=== PATIENT | female | born 1985 | race Caucasian/White ===

== ENCOUNTER 2016-06-30 15:17 | Inpatient (IN) | payer OTHER ==
[~2016-06-30] VITALS: Ht 160 cm; Wt 55.4 kg
[~2016-06-30 15:17] MED LIST: CLIN-73 PO
[2016-06-30 19:57] VITALS: BP 82/46; RESP 16
[2016-06-30 20:21] VITALS: Ht 160 cm; Wt 55.4 kg
[2016-06-30] MEDS ORDERED: ACETAMINOPHEN 325 MG TAB PO PRN (21:00)
[2016-06-30] MEDS ORDERED: VANCOMYCIN IV PER PHARMACY XX SCH (21:00)
[2016-06-30] MEDS: VANCOMYCIN 1 GM (PMX) 250 ML IVPB SCH (22:30)
[2016-07-01 00:48] VITALS: BP 96/55; PULSE 88; RESP 18
[2016-07-01 00:49] LABS: ADD UMIC YES; URINE BILIRUBIN (Dip) NEGATIVE (NEGATIVE); URINE BLOOD (Dip) 3+ (NEGATIVE); URINE COLOR RED (YELLOW); URINE GLUCOSE (Dip) NEGATIVE (NEGATIVE); URINE KETONES (Dip) NEGATIVE (NEGATIVE); URINE LEUKOCYTE ESTERASE (Dip) NEGATIVE (NEGATIVE); URINE NITRITE (Dip) NEGATIVE (NEGATIVE); URINE TOTAL PROTEIN (Dip) 2+ (NEGATIVE); URINE UROBILINOGEN (Dip) 1.0 E.U./dL (0.1-1.0)
[2016-07-01 00:52] LABS: BACTERIA,URINE FEW; SQUAMOUS EPITHELIAL CELL,UR FEW; URINE RBCS >200 /HPF (0)
[2016-07-01] MEDS: IMIPENEM/CILASTATIN 1,000 MG in SOD CHLORIDE 0.9% 250 ML IVPB SCH ×4 (00:57→17:24)
[2016-07-01 01:16] LABS: ALBUMIN 2.5 g/dl (3.3-4.9); BASOPHILS % 0.6 % (0.0-2.0); EOSINOPHILS # 0.2 10^3/ul (0.0-0.5); EOSINOPHILS % 4.2 % (0.0-7.0); HEMATOCRIT 29.8 % (37.0-47.0); HEMOGLOBIN 9.9 g/dl (12.0-16.0); LYMPHOCYTES # 1.3 10^3/ul (0.8-2.9); LYMPHOCYTES % 26.8 % (15.0-51.0); MEAN CORPUSCULAR HEMOGLOBIN 27.6 pg (29.0-33.0); MEAN CORPUSCULAR HGB CONC 33.1 g/dl (32.0-37.0); MEAN CORPUSCULAR VOLUME 83.3 fl (82.0-101.0); MEAN PLATELET VOLUME 7.1 fl (7.4-10.4); MONOCYTE # 0.5 10^3/ul (0.3-0.9); MONOCYTES % 9.6 % (0.0-11.0); NEUTROPHIL # 2.9 10^3/ul (1.6-7.5); NEUTROPHILS % 58.8 % (39.0-77.0); PLATELET COUNT 378 10^3/UL (140-440); POTASSIUM 3.7 mmol/L (3.5-5.1); RED BLOOD COUNT 3.57 10^6/ul (4.20-5.40); RED CELL DISTRIBUTION WIDTH 14.3 % (11.5-14.5); UNCORRECTED WBC 4.9 10^3/ul (4.8-10.8); WHITE BLOOD COUNT 4.9 10^3/ul (4.8-10.8)
[2016-07-01 01:17] LABS: CONDITION 1
[2016-07-01 01:18] LABS: CREATININE 0.65 mg/dl (0.44-1.00)
[2016-07-01 01:19] LABS: ALBUMIN/GLOBULIN RATIO 0.73; CALCIUM 8.3 mg/dl (8.4-10.2); MAGNESIUM 1.8 mg/dl (1.7-2.5); PHOSPHORUS 3.4 mg/dl (2.5-4.9); TOTAL PROTEIN 5.9 g/dl (6.1-8.1)
[2016-07-01] MEDS: METHADONE 10 MG TAB PO SCH ×3 (01:41→17:24)
[2016-07-01 07:41] VITALS: BP 91/51; RESP 19
[2016-07-01] MEDS: VANCOMYCIN 1 GM (PMX) 250 ML IVPB SCH ×2 (09:26→22:20)
[2016-07-01] MEDS: ENOXAPARIN 40 MG/0.4 ML SYG SC SCH (09:32)
--- NOTE | 2016-07-01 11:49 | PN ---
Date/Time of Note Date/Time of Note DATE: 07/01/16 TIME: 11:46 Assessment/Plan VTE Prophylaxis VTE Prophylaxis Intervention: LMWH Lines/Catheters IV Catheter Type (from Nrs): Saline Lock Assessment/Plan Chief Complaint/Hosp Course S: Less pain. No further fever. No nausea diarrhea. No previous similar issues in the past. O: Vss PE No pallor adenopathy Regular, no appreciated murmur rub gallop Clear Benign Right ankle: Ulcer eschar erythema tenderness A/P 1. Rt ankle ulcer/abscess; stable consulted podiatry. Cont atb's/tetanus shot; xr +/- mri. 2. Substance abuse 3. Anemia Problems: Exam/Review of Systems Vital Signs Vitals Vital Signs Date Time Temp Pulse Resp B/P Pulse Ox O2 Delivery O2 Flow Rate FiO2 07/01/16 07:41 97.7 69 19 91/51 98 Intake and Output 06/30/16 06/30/16 07/01/16 15:00 23:00 07:00 Intake Total 620 ml Output Total 800 ml Balance -180 ml Results Result Diagram: 07/01/16 0040 07/01/16 0040 Results 24 hrs Laboratory Tests Test 06/30/16 23:40 07/01/16 00:40 Urine Bacteria FEW Urine Bilirubin NEGATIVE Urine Clarity BLOODY Urine Color RED Urine Glucose NEGATIVE Urine Hemoglobin 3+ H Urine Ketones NEGATIVE Urine Leukocyte Esterase NEGATIVE Urine Microscopic RBC >200 Urine Microscopic WBC 0-2 Urine Nitrite NEGATIVE Urine Specific [place] 1.025 Urine Squamous Epithelial Cells FEW Urine Total Protein 2+ H Urine Urobilinogen 1.0 E.U./dL Urine pH 7.0 Alanine Aminotransferase (ALT/SGPT) 32 Albumin 2.5 L Albumin/Globulin Ratio 0.73 Alkaline Phosphatase 86 Anion Gap 12 Aspartate Amino Transf (AST/SGOT) 26 Basophils # 0.0 Basophils % 0.6 Blood Morphology Comment Blood Urea Nitrogen 6 L Calcium Level 8.3 L Carbon Dioxide Level 27 Chloride Level 104 Creatinine 0.65 Direct Bilirubin 0.00 Eosinophils # 0.2 Eosinophils % 4.2 Globulin 3.40 H Glucose Level 104 Hematocrit 29.8 L Hemoglobin 9.9 L Indirect Bilirubin 0.0 Lymphocytes # 1.3 Lymphocytes % 26.8 Magnesium Level 1.8 Mean Corpuscular Hemoglobin 27.6 L Mean Corpuscular Hemoglobin Concent 33.1 Mean Corpuscular Volume 83.3 Mean Platelet Volume 7.1 L Monocytes # 0.5 Monocytes % 9.6 Neutrophils # 2.9 Neutrophils % 58.8 Nucleated Red Blood Cells # 0.0 Nucleated Red Blood Cells % 0.0 Phosphorus Level 3.4 Platelet Count 378 Potassium Level 3.7 Red Blood Count 3.57 L Red Cell Distribution Width 14.3 Sodium Level 139 Total Bilirubin 0.0 L Total Protein 5.9 L White Blood Count 4.9 Medications Medications Current Medications Imipenem/ Cilastatin Sodium/ Sodium Chloride (Primaxin/NS) 250 ml @ 166.667 mls /hr Q6 IVPB Last administered on 07/01/16 06:08; Admin Dose 166.667 MLS/HR; Start 07/01/16 at 00:00 Morphine Sulfate (morphine) 4 mg Q4H PRN IV pain; Start 06/30/16 at 21:00 Acetaminophen (Tylenol Tab) 650 mg Q6H PRN PO PAIN AND OR ELEVATED TEMP; Start 06/30/16 at 21:00 Enoxaparin Sodium 40 mg 40 mg DAILY SC Last administered on 07/01/16 09:32; Admin Dose 40 MG; Start 07/01/16 at 09:00 Vancomycin HCl (Vancocin) 250 ml @ 125 mls/hr Q12H IVPB Last administered on 09:26; Admin Dose 125 MLS/HR; Start 06/30/16 at 22:00 Methadone HCl (Methadone) 20 mg Q8H PO Last administered on 07/01/16 09:26; Admin Dose 20 MG; Start 07/01/16 at 01:00 HEATHER GONSALVES MD Jul 01, 2016 11:49
[2016-07-01] MEDS ORDERED: HYDROCODONE/APAP (10/325) TAB PO PRN (12:00)
[2016-07-01] MEDS ORDERED: DOCUSATE SODIUM 100 MG CAP PO PRN (12:00)
[2016-07-01] MEDS ORDERED: ONDANSETRON 4 MG INJ IV PRN (12:00)
[2016-07-01] MEDS ORDERED: NACL 0.9% 3 ML SYG IV SCH (12:00)
[2016-07-01] MEDS: SOD CHLORIDE 0.9% 1,000 ML IV SCH ×2 (12:48→20:00)
--- NOTE | 2016-07-01 12:49 | CONS ---
Date/Time of Note Date/Time of Note DATE: 07/01/16 TIME: 12:48 Consultation Date/Type/Reason Admit Date/Time Jun 30, 2016 at 19:37 Social History Smoking Status: Current every day smoker Exam/Review of Systems Vital Signs Vitals Vital Signs Date Time Temp Pulse Resp B/P Pulse Ox O2 Delivery O2 Flow Rate FiO2 07/01/16 07:41 97.7 69 19 91/51 98 Intake and Output 06/30/16 06/30/16 07/01/16 15:00 23:00 07:00 Intake Total 620 ml Output Total 800 ml Balance -180 ml Results Result Diagram: 07/01/16 0040 07/01/16 0040 Results 24 hrs Laboratory Tests Test 06/30/16 23:40 07/01/16 00:40 Urine Bacteria FEW Urine Bilirubin NEGATIVE Urine Clarity BLOODY Urine Color RED Urine Glucose NEGATIVE Urine Hemoglobin 3+ H Urine Ketones NEGATIVE Urine Leukocyte Esterase NEGATIVE Urine Microscopic RBC >200 Urine Microscopic WBC 0-2 Urine Nitrite NEGATIVE Urine Specific [place] 1.025 Urine Squamous Epithelial Cells FEW Urine Total Protein 2+ H Urine Urobilinogen 1.0 E.U./dL Urine pH 7.0 Alanine Aminotransferase (ALT/SGPT) 32 Albumin 2.5 L Albumin/Globulin Ratio 0.73 Alkaline Phosphatase 86 Anion Gap 12 Aspartate Amino Transf (AST/SGOT) 26 Basophils # 0.0 Basophils % 0.6 Blood Morphology Comment Blood Urea Nitrogen 6 L Calcium Level 8.3 L Carbon Dioxide Level 27 Chloride Level 104 Creatinine 0.65 Direct Bilirubin 0.00 Eosinophils # 0.2 Eosinophils % 4.2 Globulin 3.40 H Glucose Level 104 Hematocrit 29.8 L Hemoglobin 9.9 L Indirect Bilirubin 0.0 Lymphocytes # 1.3 Lymphocytes % 26.8 Magnesium Level 1.8 Mean Corpuscular Hemoglobin 27.6 L Mean Corpuscular Hemoglobin Concent 33.1 Mean Corpuscular Volume 83.3 Mean Platelet Volume 7.1 L Monocytes # 0.5 Monocytes % 9.6 Neutrophils # 2.9 Neutrophils % 58.8 Nucleated Red Blood Cells # 0.0 Nucleated Red Blood Cells % 0.0 Phosphorus Level 3.4 Platelet Count 378 Potassium Level 3.7 Red Blood Count 3.57 L Red Cell Distribution Width 14.3 Serum HCG, Qualitative NEGATIVE Sodium Level 139 Total Bilirubin 0.0 L Total Protein 5.9 L White Blood Count 4.9 Medications Medications Current Medications Imipenem/ Cilastatin Sodium/ Sodium Chloride (Primaxin/NS) 250 ml @ 166.667 mls /hr Q6 IVPB Last administered on 07/01/16 06:08; Admin Dose 166.667 MLS/HR; Start 07/01/16 at 00:00 Morphine Sulfate (morphine) 4 mg Q4H PRN IV pain; Start 06/30/16 at 21:00 Acetaminophen (Tylenol Tab) 650 mg Q6H PRN PO PAIN AND OR ELEVATED TEMP; Start 06/30/16 at 21:00 Enoxaparin Sodium 40 mg 40 mg DAILY SC Last administered on 07/01/16 09:32; Admin Dose 40 MG; Start 07/01/16 at 09:00 Vancomycin HCl (Vancocin) 250 ml @ 125 mls/hr Q12H IVPB Last administered on 09:26; Admin Dose 125 MLS/HR; Start 06/30/16 at 22:00 Methadone HCl 20 mg 20 mg Q8H PO Last administered on 07/01/16 09:26; Admin Dose 20 MG; Start 07/01/16 at 01:00 Sodium Chloride (NS) 1,000 ml @ 125 mls/hr Q8H IV ; Start 07/01/16 at 12:00 Ondansetron HCl (Zofran Inj) 4 mg Q6H PRN IV NAUSEA AND/OR VOMITING; Start at 12:00 Docusate Sodium (Colace) 100 mg Q12H PRN PO CONSTIPATION; Start 07/01/16 at 12: 00 Acetaminophen/ Hydrocodone Bitart ([place] (10/325)) 1 tab Q4H PRN PO PAIN; Start 07/01/16 at 12:00 JAZMIN TIWARI DPM Jul 01, 2016 12:48
--- NOTE | 2016-07-01 14:31 | RADRPT ---
PROCEDURE: XR right ankle. CLINICAL INDICATION: Ankle pain TECHNIQUE: AP and lateral views are available for review. COMPARISON: None available FINDINGS: There is soft tissue swelling lateral to the lateral malleolus. There is normal mineralization, architecture and alignment. No fracture or osseous lesion is identif ied. The joints are unremarkable. IMPRESSION: Soft tissue swelling lateral to the lateral malleolus. No fracture identified. RPTAT: HGDB .Tima Cook MD, MD Date Time Electronically viewed and signed by .Tima Cook MD, on 07/01/2016 14:30 .B/
--- NOTE | 2016-07-01 15:54 | HP ---
Date/Time of Note Date/Time of Note DATE: 07/01/16 TIME: 15:46 Assessment/Plan VTE Prophylaxis VTE Prophylaxis Intervention: heparin Lines/Catheters IV C[facility] Type [facility]from [facility] Peripheral IV Urinary Cath still in place: No Assessment/Plan Assessment/Plan 1. Right leg infected Ulcer: s/p IVDU - broad spectrum abx - wound cx - ID consult 2. Active IV Drug use - start methadone - monitor for withdrawal HPI/ROS Admit Date/Time Admit Date/Time Jun 30, 2016 at 19:37 Hx of Present Illness This is a 30 yo female with hx of IVDU who initially presented to OSH with right leg wound. She said she was injecting around her right ankle area and starting about a week a ago, she started noticing redness and swelling, which has since worsened and became dark with draining serosangenous fluid. Reported fever and also said "I think I'm feeling like withdrawing". No chest pain or SOB. She was transferred here for insurance reasons. . PMH/Family/Social Social History Smoking Status: Current every day smoker Exam/Review of Systems Vital Signs Vitals Vital Signs Date Time Temp Pulse Resp B/P Pulse Ox O2 Delivery O2 Flow Rate FiO2 07/01/16 07:41 97.7 69 19 91/51 98 Intake and Output 06/30/16 06/30/16 07/01/16 15:00 23:00 07:00 Intake Total 620 ml Output Total 800 ml Balance -180 ml Exam Constitutional: other (sleepy, but arousable) Head: atraumatic, normocephalic Eyes: EOMI, PERRL Neck: non-tender, supple Respiratory: clear to auscultation, normal air movement Cardiovascular: nl pulses, regular rate and rhythm Gastrointestinal: non-tender, soft Extremities: other (there is wound in the lateral aspect of right ankle. Overlying skin is dark and there is serosanginous fluid draining. right foot is swollen, erythematous and tender) Labs Result Diagram: 07/01/16 0040 07/01/16 0040 Medications Medications Current Medications Imipenem/ Cilastatin Sodium/ Sodium Chloride (Primaxin/NS) 250 ml @ 166.667 mls /hr Q6 IVPB Last administered on 07/01/16t 12:48; Admin Dose 166.667 MLS/HR; Start 07/01/16 at 00:00 Morphine Sulfate (morphine) 4 mg Q4H PRN IV pain; Start 06/30/16 at 21:00 Acetaminophen (Tylenol Tab) 650 mg Q6H PRN PO PAIN AND OR ELEVATED TEMP; Start 06/30/16 at 21:00 Enoxaparin Sodium 40 mg 40 mg DAILY SC Last administered on 07/01/16 09:32; Admin Dose 40 MG; Start 07/01/16 at 09:00 Vancomycin HCl (Vancocin) 250 ml @ 125 mls/hr Q12H IVPB Last administered on 09:26; Admin Dose 125 MLS/HR; Start 06/30/16 at 22:00 Methadone HCl 20 mg 20 mg Q8H PO Last administered on 07/01/16 09:26; Admin Dose 20 MG; Start 07/01/16 at 01:00 Sodium Chloride (NS) 1,000 ml @ 125 mls/hr Q8H IV Last administered on 12:48; Admin Dose 125 MLS/HR; Start 07/01/16 at 12:00 Ondansetron HCl (Zofran Inj) 4 mg Q6H PRN IV NAUSEA AND/OR VOMITING; Start at 12:00 Docusate Sodium (Colace) 100 mg Q12H PRN PO CONSTIPATION; Start 07/01/16 at 12: 00 Acetaminophen/ Hydrocodone Bitart ([place] (10/325)) 1 tab Q4H PRN PO PAIN; Start 07/01/16 at 12:00 Miscellaneous Information (*Rx Drug Level Order Reminder*) 1 ONCE ONCE XX ; Start 07/01/16 at 21:00; Stop 07/01/16 at 21:01 ANTHONY DEL CASTILLO MD Jul 01, 2016 15:54
[2016-07-01 19:57] VITALS: BP 105/64; RESP 16
[2016-07-02] VITALS (9 sets, daily range): BP systolic 99–123; BP diastolic 58–90; PULSE 66–68; RESP 14–19
[2016-07-02 00:28] LABS: BARBITURATES NEGATIVE (NEGATIVE); BENZODIAZEPINES NEGATIVE (NEGATIVE); CANNABINOIDS NEGATIVE (NEGATIVE); COCAINE NEGATIVE (NEGATIVE); OPIATES POSITIVE (NEGATIVE)
[2016-07-02] MEDS: METHADONE 10 MG TAB PO SCH ×3 (01:22→17:06)
--- NOTE | 2016-07-02 02:24 | RADRPT ---
PROCEDURE: MR Ankle. CLINICAL INDICATION: Right ankle abscess. Pain and swelling in the right ankle radiating into the foot and metatarsals. TECHNIQUE: Noncontrast MRI of the right ankle, with axial, sagittal and coronal reformatted images. T1-weighted, T2-weighted, proton density and STIR sequences were employed. COMPARISON: No prior studies are available for comparison. FINDINGS: The osseous structures are normal. There are no fractures or dislocations. The talar dome is intac t. The subtalar facets are normal and there are no coalitions. The anterior calcaneal and lateral talar processes are normal. The sinus tarsus and tarsal tunnel are unremarkable. All tendinous structures are unremarkable including the Achilles tendon, plantar aponeurosis, registered medical assistant ior tibialis tendon and peroneal tendons. Suspected low grade injury at the anterior tibiofibular ligament. The anterior talofibular ligament, the syndesmotic ligament and deltoid ligament complexes are normal. Soft tissue defect over the anterior lateral aspect of the right ankle, without definite underlying abscess. IV contrast enhanced MRI examination of the right ankle may be of further use. Soft tissue swelling over the ankle and dorsum of the foot. IMPRESSION: 1. Soft tissue swelling over the right ankle and the dorsum of the foot. 2. Soft tissue defect over the antral lateral right ankle, without definite underlying abscess. 3. Otherwise, no acute process in the right ankle. Physician Charbel Date Time Electronically viewed and signed by Physician Charbel on 07/02/2016 02:23 RS/
[2016-07-02] MEDS: IMIPENEM/CILASTATIN 1,000 MG in SOD CHLORIDE 0.9% 250 ML IVPB SCH ×6 (02:32→17:06)
--- NOTE | 2016-07-02 02:38 | RADRPT ---
PROCEDURE: MR Foot. CLINICAL INDICATION: Soft tissue defect over the ankle with suspected abscess. TECHNIQUE: Noncontrast MRI of the right forefoot, with axial, sagittal and coronal images. COMPARISON: No prior studies are available for comparison. FINDINGS: There are no fractures or dislocations. There are no stress fractures. The osseous structures are normal. They demonstrate normal bone marrow signal. The sesamoids are normal. They are not diverg ent. No osteoarthritic changes are noted. All articular surfaces are unremarkable. The visualized portions of the midfoot are normal. The Lisfranc ligament is normal. The remaining visualized ligamentous structures are unremarkable. All visualized flexor and extensor mechanism tendons are normal. There is no muscular atrophy. There are no abnormal fluid collections. Soft tissue defect of the anterior lateral right ankle, wit hout definite abscess. Soft tissue swelling and edema over the ankle and dorsum of the foot. IMPRESSION: 1. Soft tissue defect at the right ankle, with soft tissue swelling over the right foot. 2. No evident abscess. RPTAT: [facility] Physician Charbel Date Time Electronically viewed and signed by Physician Charbel on 07/02/2016 02:38 RS/
[2016-07-02] MEDS: SOD CHLORIDE 0.9% 1,000 ML IV SCH ×3 (04:00→20:47)
[2016-07-02] MEDS: VANCOMYCIN 1 GM (PMX) 250 ML IVPB SCH ×3 (05:33→22:54)
[2016-07-02 06:52] LABS: HAAIG REFLEX REFLEX FILED
[2016-07-02 07:08] LABS: BASOPHILS % 0.5 % (0.0-2.0); EOSINOPHILS # 0.1 10^3/ul (0.0-0.5); HEMATOCRIT 30.5 % (37.0-47.0); HEMOGLOBIN 10.2 g/dl (12.0-16.0); LYMPHOCYTES % 27.2 % (15.0-51.0); MEAN CORPUSCULAR HEMOGLOBIN 27.8 pg (29.0-33.0); MEAN CORPUSCULAR HGB CONC 33.4 g/dl (32.0-37.0); MEAN CORPUSCULAR VOLUME 83.2 fl (82.0-101.0); MEAN PLATELET VOLUME 7.1 fl (7.4-10.4); MONOCYTE # 0.4 10^3/ul (0.3-0.9); MONOCYTES % 9.9 % (0.0-11.0); NEUTROPHIL # 2.3 10^3/ul (1.6-7.5); NEUTROPHILS % 60.4 % (39.0-77.0); PLATELET COUNT 377 10^3/UL (140-440); RED BLOOD COUNT 3.67 10^6/ul (4.20-5.40); RED CELL DISTRIBUTION WIDTH 14.5 % (11.5-14.5); UNCORRECTED WBC 3.8 10^3/ul (4.8-10.8); WHITE BLOOD COUNT 3.8 10^3/ul (4.8-10.8)
[2016-07-02 07:16] LABS: CONDITION 1
[2016-07-02 07:23] LABS: ALBUMIN 2.9 g/dl (3.3-4.9); POTASSIUM 4.2 mmol/L (3.5-5.1)
[2016-07-02 07:25] LABS: CREATININE 0.62 mg/dl (0.44-1.00)
[2016-07-02 07:26] LABS: ALBUMIN/GLOBULIN RATIO 0.74; PHOSPHORUS 3.9 mg/dl (2.5-4.9); TOTAL PROTEIN 6.8 g/dl (6.1-8.1)
[2016-07-02 07:27] LABS: CALCIUM 8.8 mg/dl (8.4-10.2); MAGNESIUM 1.8 mg/dl (1.7-2.5)
[2016-07-02 07:48] LABS: THYROID STIMULATING HORMONE 3.65 MIU/L (0.465-4.680)
[2016-07-02 08:38] LABS: HEPATITIS B CORE ANTIBODY NEGATIVE (NEGATIVE)
[2016-07-02] MEDS: ENOXAPARIN 40 MG/0.4 ML SYG SC SCH (10:04)
--- NOTE | 2016-07-02 13:43 | PN ---
Date/Time of Note Date/Time of Note DATE: 07/02/16 TIME: 13:38 Assessment/Plan VTE Prophylaxis VTE Prophylaxis Intervention: contraindicated (Bleeding risk) Lines/Catheters IV Catheter Type (from Nrs): Peripheral IV Urinary Cath still in place: No Assessment/Plan Chief Complaint/Hosp Course S: 07/01 less pain. No further fever. No nausea diarrhea. No previous similar issues in the past. 07/02 stable. No toxicity. O: Vss PE No pallor Reg; no appreciated m/r/g Clear Benign Rt ankle: Ulcer/ eschar erythema-less; mild tenderness A/P 1. Rt ankle ulcer/abscess; stable, for i&d. 2. Substance abuse-methadone/amphetamine/tobacco? 3. Anemia 4. Hepatitis C?? -Confirmatory testing to be sent 5. Leukopenia Problems: Exam/Review of Systems Vital Signs Vitals Vital Signs Date Time Temp Pulse Resp B/P Pulse Ox O2 Delivery O2 Flow Rate FiO2 07/02/16 07:38 97.8 77 19 99/63 97 Intake and Output 07/01/16 07/01/16 07/02/16 15:00 23:00 07:00 Intake Total 2300 ml 1525 ml Output Total 1000 ml 1800 ml Balance 1300 ml -275 ml Results Result Diagram: 07/02/16 0510 07/02/16 0510 Results 24 hrs Laboratory Tests Test 07/01/16 20:55 07/01/16 22:30 07/02/16 05:10 Vancomycin Level Trough 7.0 L Urine Amphetamines Screen POSITIVE Urine Barbiturates NEGATIVE Urine Benzodiazepines Screen NEGATIVE Urine Cannabinoids NEGATIVE Urine Cocaine Screen NEGATIVE Urine Opiates Screen POSITIVE Alanine Aminotransferase (ALT/SGPT) 32 Albumin 2.9 L Albumin/Globulin Ratio 0.74 Alkaline Phosphatase 82 Anion Gap 13 Aspartate Amino Transf (AST/SGOT) 38 Basophils # 0.0 Basophils % 0.5 Blood Morphology Comment Blood Urea Nitrogen 4 L Calcium Level 8.8 Carbon Dioxide Level 30 Chloride Level 100 Creatinine 0.62 Direct Bilirubin 0.00 Eosinophils # 0.1 Eosinophils % 2.0 Globulin 3.90 H Glucose Level 76 HIV (1&2) Antibody NEGATIVE Hematocrit 30.5 L Hemoglobin 10.2 L Hemoglobin A1c 5.6 Hepatitis B Core Total Antibody NEGATIVE Hepatitis B Surface Antigen NEGATIVE Hepatitis C Antibody REACTIVE H Indirect Bilirubin 0.0 Lymphocytes # 1.0 Lymphocytes % 27.2 Magnesium Level 1.8 Mean Corpuscular Hemoglobin 27.8 L Mean Corpuscular Hemoglobin Concent 33.4 Mean Corpuscular Volume 83.2 Mean Platelet Volume 7.1 L Monocytes # 0.4 Monocytes % 9.9 Neutrophils # 2.3 Neutrophils % 60.4 Nucleated Red Blood Cells # 0.0 Nucleated Red Blood Cells % 0.0 Phosphorus Level 3.9 Platelet Count 377 Potassium Level 4.2 Red Blood Count 3.67 L Red Cell Distribution Width 14.5 Sodium Level 139 Thyroid Stimulating Hormone (TSH) 3.650 Total Bilirubin 0.0 L Total Protein 6.8 White Blood Count 3.8 #L Medications Medications Current Medications Imipenem/ Cilastatin Sodium/ Sodium Chloride (Primaxin/NS) 250 ml @ 166.667 mls /hr Q6 IVPB Last administered on 07/02/16 12:32; Admin Dose 166.667 MLS/HR; Start 07/01/16 at 00:00 Morphine Sulfate (morphine) 4 mg Q4H PRN IV pain; Start 06/30/16 at 21:00 Acetaminophen (Tylenol Tab) 650 mg Q6H PRN PO PAIN AND OR ELEVATED TEMP; Start 06/30/16 at 21:00 Enoxaparin Sodium (Lovenox) 40 mg DAILY SC Last administered on 07/02/16 10:04 ; Admin Dose 40 MG; Start 07/01/16 at 09:00 Methadone HCl 20 mg 20 mg Q8H PO Last administered on 07/02/16 09:59; Admin Dose 20 MG; Start 07/01/16 at 01:00 Sodium Chloride (NS) 1,000 ml @ 125 mls/hr Q8H IV Last administered on 12:48; Admin Dose 125 MLS/HR; Start 07/01/16 at 12:00 Ondansetron HCl (Zofran Inj) 4 mg Q6H PRN IV NAUSEA AND/OR VOMITING; Start at 12:00 Docusate Sodium (Colace) 100 mg Q12H PRN PO CONSTIPATION; Start 07/01/16 at 12: 00 Acetaminophen/ Hydrocodone Bitart 1 tab 1 tab Q4H PRN PO PAIN; Start 07/01/16 at 12:00 Vancomycin HCl (Vancocin) 250 ml @ 125 mls/hr Q8H IVPB Last administered on t 05:33; Admin Dose 125 MLS/HR; Start 07/01/16 at 22:00 HEATHER GONSALVES MD Jul 02, 2016 13:43
[2016-07-02] MEDS ORDERED: LIDOCAINE 2% (SDV) 5 ML INJ ONE (18:58)
[2016-07-02] MEDS ORDERED: PROPOFOL 20 ML ONE (18:58)
[2016-07-02] MEDS ORDERED: MEPERIDINE 100 MG INJ ONE (18:59)
[2016-07-02] MEDS ORDERED: ONDANSETRON 4 MG INJ IV PRN (19:00)
[2016-07-02] MEDS ORDERED: MEPERIDINE 25 MG INJ IV PRN (19:00)
[2016-07-02] MEDS ORDERED: DIPHENHYDRAMINE 50 MG INJ IV PRN (19:00)
[2016-07-02] MEDS ORDERED: METOCLOPRAMIDE 10 MG INJ IV PRN (19:00)
[2016-07-02] MEDS ORDERED: MIDAZOLAM 1 MG/ML 2 ML INJ IV PRN (19:00)
[2016-07-02] MEDS ORDERED: morphine (1 MG/ML) 10ML SYRINGE IV PRN ×2 (19:00)
[2016-07-02] MEDS ORDERED: FENTAnyl 50 MCG/ML VIAL IV PRN ×2 (19:00)
[2016-07-02] MEDS ORDERED: POLYMYXIN/BACITRACIN 1L IRRIG IRR ONE (19:38)
--- NOTE | 2016-07-02 19:48 | PN ---
Date/Time of Note Date/Time of Note DATE: 07/02/16 TIME: 19:42 Assessment/Plan Lines/Catheters IV Catheter Type (from Nrsg): Peripheral IV [place] in Place (from Nrsg): No Subjective 24 Hr Interval Summary Reports pain in the right ankle. Denies fever and chills. Reports no overnight adverse events. Reports feeling better with less swelling on the right ankle. Patient was seen at bedside. Constitutional: no complaints Pain Control: well controlled Exam/Review of Systems Vital Signs Vitals Vital Signs Date Time Temp Pulse Resp B/P Pulse Ox O2 Delivery O2 Flow Rate FiO2 07/02/16 07:38 97.8 77 19 99/63 97 Intake and Output 07/01/16 07/01/16 07/02/16 15:00 23:00 07:00 Intake Total 2300 ml 1525 ml Output Total 1000 ml 1800 ml Balance 1300 ml -275 ml Exam Free Text/Dictation Patient was seen and examined at bedside. Black eschar present anterior right ankle with pus draining. Decrease in edema noted with wrinkling sign. There is decrease in erythema. The area is tender to palpation. Dorsalis pedis and posterior tibial pulses weakly palpable. There is decrease in sensation noted on the right foot versus the left foot. No other changes noted on examination today. Imaging and labs reviewed. Results Result Diagram: 07/02/16 0510 07/02/16 0510 JAZMIN TIWARI DPM Jul 02, 2016 19:48
--- NOTE | 2016-07-02 19:52 | OPR ---
Date/Time of Note Date/Time of Note DATE: 07/02/16 TIME: 19:49 Operative Report Procedure Date: Jul 02, 2016 Preoperative Diagnosis Right ankle abscess Status post IVDA Infection from attempted use of IVDA on the right ankle Heroin abuse Postoperative Diagnosis Right ankle abscess Status post IVDA Infection from attempted use of IVDA on the right ankle Heroin abuse Surgeon: JAZMIN TIWARI DPM Anesthesia: general Estimated Blood Loss: minimal Specimens NONE Complications: None Pt Condition Post Procedure: stable Disposition: PACU Indications This is an unfortunate 30-year-old female patient who is addicted to heroin. She was admitted to the hospital because she injected her right ankle and cause a severe infection. I was consulted for evaluation and treatment. She was found to have an abscess of the right ankle with necrosis. I recommended surgical debridement. The risks and complications were discussed with patient in great detail including but not limited to worsening of her infection, failure of surgery to correct the problem, need for additional surgical procedures, deep venous thrombosis, limb loss and loss of life. Patient understands and accepts the risks and complications discussed. An informed consent was signed, obtained and placed in the chart. No guarantee or warranty was given or implied either verbal or written form as to the outcome of the procedure. Operative Findings Significant necrosis of right ankle with purulent drainage and necrotic soft tissue with exposed neurovascular structures and muscle. Procedure Description The patient was seen in the preoperative area. The proposed procedure was discussed and all questions were answered. Risks and complications were discussed. Informed consent was obtained signed and placed in the chart. The patient was then taken to the operating room. Patient was placed on the operating table in the supine position. All bony prominences were padded properly. A timeout was called and the correct site of surgery was identified by everyone in the operating room. The anesthesiologist placed the patient under general anesthesia. The right lower extremity was then scrubbed, prepped and draped in the usual aseptic manner. Attention was directed to the anterior right ankle with 6 x 6 cm necrotic black eschar was found. This was removed surgically using a #15 blade. There was significant necrosis of soft tissue underneath the black eschar. Using sharp instrumentation and care to protect vital neurovascular structures, necrotic soft tissue was debrided to bleeding tissue. The area was flushed with copious amounts of sterile normal saline with bacitracin. After extensive debridement to bleeding tissue, the wound was covered with hydrogel, Xeroform, sterile gauze and wrapped in Matias and Coban. Postoperative injection of 0.5% Marcaine plain was given. The patient tolerated procedure and anesthesia well. She was transferred to recovery room with vital signs stable and vascular status intact to the right lower extremity. Patient will be sent back to the floor after postoperative monitoring. Postoperative orders were written. Patient will be seen in house. Prognosis is guarded at this time. JAZMIN TIWARI DPM Jul 02, 2016 19:52
[2016-07-02] MEDS: morphine 4 MG/ML VIAL IV PRN (20:45)
[2016-07-02] MEDS: FLUCONAZOLE 100 MG TAB PO SCH (21:27)
[2016-07-02] MEDS ORDERED: IBUPROFEN 600 MG TAB PO PRN (21:30)
[2016-07-02] MEDS ORDERED: HYDROmorphONE 1 MG/ML SYG IV STA (21:34)
[2016-07-02] MEDS ORDERED: LORAZEPAM 2 MG INJ IV PRN (22:00)
[2016-07-03] MEDS: METHADONE 10 MG TAB PO SCH ×4 (01:00→18:20)
[2016-07-03] MEDS: IMIPENEM/CILASTATIN 1,000 MG in SOD CHLORIDE 0.9% 250 ML IVPB SCH ×6 (01:11→18:21)
[2016-07-03 04:00] VITALS: BP 100/71; RESP 16
[2016-07-03 05:49] LABS: BASOPHILS % 0.6 % (0.0-2.0); EOSINOPHILS # 0.1 10^3/ul (0.0-0.5); EOSINOPHILS % 4.3 % (0.0-7.0); HEMATOCRIT 31.4 % (37.0-47.0); HEMOGLOBIN 10.5 g/dl (12.0-16.0); LYMPHOCYTES # 1.4 10^3/ul (0.8-2.9); LYMPHOCYTES % 46.3 % (15.0-51.0); MEAN CORPUSCULAR HEMOGLOBIN 27.8 pg (29.0-33.0); MEAN CORPUSCULAR HGB CONC 33.6 g/dl (32.0-37.0); MEAN CORPUSCULAR VOLUME 82.9 fl (82.0-101.0); MEAN PLATELET VOLUME 6.8 fl (7.4-10.4); MONOCYTE # 0.3 10^3/ul (0.3-0.9); MONOCYTES % 10.5 % (0.0-11.0); NEUTROPHIL # 1.2 10^3/ul (1.6-7.5); NEUTROPHILS % 38.3 % (39.0-77.0); PLATELET COUNT 406 10^3/UL (140-440); RED BLOOD COUNT 3.78 10^6/ul (4.20-5.40); RED CELL DISTRIBUTION WIDTH 14.4 % (11.5-14.5); UNCORRECTED WBC 3.1 10^3/ul (4.8-10.8); WHITE BLOOD COUNT 3.1 10^3/ul (4.8-10.8)
[2016-07-03 06:05] LABS: POTASSIUM 3.8 mmol/L (3.5-5.1)
[2016-07-03 06:07] LABS: CREATININE 0.56 mg/dl (0.44-1.00)
[2016-07-03 06:08] LABS: CALCIUM 8.8 mg/dl (8.4-10.2); PHOSPHORUS 4.1 mg/dl (2.5-4.9)
[2016-07-03 06:11] LABS: CONDITION 1
[2016-07-03] MEDS: VANCOMYCIN 1 GM (PMX) 250 ML IVPB SCH (07:00)
[2016-07-03 07:57] VITALS: BP 93/63; RESP 18
[2016-07-03] MEDS: FLUCONAZOLE 100 MG TAB PO SCH ×2 (08:58→21:12)
[2016-07-03] MEDS: ENOXAPARIN 40 MG/0.4 ML SYG SC SCH (09:02)
--- NOTE | 2016-07-03 12:09 | PN ---
Date/Time of Note Date/Time of Note DATE: 07/03/16 TIME: 12:08 Assessment/Plan VTE Prophylaxis VTE Prophylaxis Intervention: LMWH Lines/Catheters Urinary Cath still in place: No Assessment/Plan Chief Complaint/Hosp Course S: 07/01 less pain. No further fever. No nausea diarrhea. No previous similar issues in the past. 07/02 stable. No toxicity. 07/03. Events noted. Anxious postsurgery as she did not get to speak with surgeon. Presently better. O: Vss PE No pallor Reg; no appreciated m/r/g Clear Benign Rt ankle: Ulcer/ eschar erythema-less; mild tenderness A/P 1. Rt ankle ulcer/abscess; stable, sp i&d. Check cultures. Anticipate discharge Tuesday w antibiotics PT/DME. ID consult pending. 2. Substance abuse-methadone/amphetamine/tobacco? 3. Anemia 4. Hepatitis C?? -Confirmatory testing to be sent 5. Leukopenia Problems: Exam/Review of Systems Vital Signs Vitals Vital Signs Date Time Temp Pulse Resp B/P Pulse Ox O2 Delivery O2 Flow Rate FiO2 07/03/16 07:57 98.5 61 18 93/63 95 07/02/16 19:54 Room Air Intake and Output 07/02/16 07/02/16 07/03/16 15:00 23:00 07:00 Intake Total 250 ml 1375 ml 1000 ml Output Total 10 ml Balance 250 ml 1365 ml 1000 ml Results Result Diagram: 07/03/16 0508 07/03/16 0508 Results 24 hrs Laboratory Tests Test 07/03/16 05:08 Anion Gap 13 Basophils # 0.0 Basophils % 0.6 Blood Morphology Comment Blood Urea Nitrogen 5 L Calcium Level 8.8 Carbon Dioxide Level 31 Chloride Level 101 Creatinine 0.56 Eosinophils # 0.1 Eosinophils % 4.3 Glucose Level 73 Hematocrit 31.4 L Hemoglobin 10.5 L Hepatitis C Antibody REACTIVE H Lymphocytes # 1.4 Lymphocytes % 46.3 Magnesium Level 2.0 Mean Corpuscular Hemoglobin 27.8 L Mean Corpuscular Hemoglobin Concent 33.6 Mean Corpuscular Volume 82.9 Mean Platelet Volume 6.8 L Monocytes # 0.3 Monocytes % 10.5 Neutrophils # 1.2 L Neutrophils % 38.3 L Nucleated Red Blood Cells # 0.0 Nucleated Red Blood Cells % 0.0 Phosphorus Level 4.1 Platelet Count 406 Potassium Level 3.8 Red Blood Count 3.78 L Red Cell Distribution Width 14.4 Sodium Level 141 Vancomycin Level Trough 17.4 White Blood Count 3.1 L Medications Medications Current Medications Imipenem/ Cilastatin Sodium/ Sodium Chloride (Primaxin/NS) 250 ml @ 166.667 mls /hr Q6 IVPB Last administered on 07/03/16 06:34; Admin Dose 166.667 MLS/HR; Start 07/01/16 at 00:00 Morphine Sulfate (morphine) 4 mg Q4H PRN IV pain Last administered on 20:45; Admin Dose 4 MG; Start 06/30/16 at 21:00 Acetaminophen (Tylenol Tab) 650 mg Q6H PRN PO PAIN AND OR ELEVATED TEMP; Start 06/30/16 at 21:00 Enoxaparin Sodium (Lovenox) 40 mg DAILY SC Last administered on 07/03/16 09:02 ; Admin Dose 40 MG; Start 07/01/16 at 09:00 Methadone HCl 20 mg 20 mg Q8H PO Last administered on 07/03/16 08:57; Admin Dose 20 MG; Start 07/01/16 at 01:00 Sodium Chloride (NS) 1,000 ml @ 75 mls/hr [id number] IV Last administered on 07/02 20:47; Admin Dose 75 MLS/HR; Start 07/01/16 at 12:00 Ondansetron HCl (Zofran Inj) 4 mg Q6H PRN IV NAUSEA AND/OR VOMITING; Start at 12:00 Docusate Sodium (Colace) 100 mg Q12H PRN PO CONSTIPATION; Start 07/01/16 at 12: 00 Acetaminophen/ Hydrocodone Bitart ([place] (10/325)) 1 tab Q4H PRN PO PAIN; Start 07/01/16 at 12:00 Ibuprofen (Motrin) 600 mg Q6H PRN PO PAIN Last administered on 07/02/16 21:28 ; Admin Dose 600 MG; Start 07/02/16 at 21:30 Fluconazole (Diflucan) 100 mg BID PO Last administered on 07/03/16 08:58; Admin Dose 100 MG; Start 07/02/16 at 21:30 Lorazepam 1 mg 1 mg Q3H PRN IV ANXIETY Last administered on 2/17/17at 22:03; Admin Dose 0.5 MG; Start 07/02/16 at 22:00 Vancomycin HCl/ Sodium Chloride (Vancocin/NS) 150 ml @ 75 mls/hr Q8H IVPB ; Start 07/03/16 at 14:00 HEATHER GONSALVES MD Jul 03, 2016 12:09
[2016-07-03] MEDS: VANCOMYCIN 750 MG in SOD CHLORIDE 0.9% 150 ML IVPB SCH ×2 (13:58→23:03)
[2016-07-03] MEDS ORDERED: VANCOMYCIN 500MG/NS (PMX) 100 ML IVPB SCH (14:00)
--- NOTE | 2016-07-03 16:27 | CONS ---
DATE OF ADMISSION: 06/30/2016 DATE OF CONSULTATION: 07/03/2016 TYPE OF CONSULTATION: Infectious Disease. REASON FOR CONSULTATION: Antibiotic management. HISTORY OF PRESENT ILLNESS: Lauren Malone is a 30-year-old female with a history of IV drug abuse . She presented with a right leg wound. She was injecting her right ankle area and starting about 1 week ago, she noticed increasing redness and swelling. It has worsened since. It became dark, wa s draining serosanguineous fluid. She had fever and possible chills. On admission, white count was 4.9, H and H 9.9 and 29.8, platelet count of 378,000. BUN and creatinine 6/0.65. She was started initially on vancomycin and also on methadone. HOSPITAL COURSE: She was seen by Dr. Duke Rush, Podiatry, and he drained the right ankle abscess , status post IV drug abuse and IV heroin abuse. This was done on 07/02/2016. The patient has less pain today. No nausea or diarrhea. She has right ankle abscess. PAST MEDICAL HISTORY: Operations as outlined. FAMILY HISTORY: Noncontributory. SOCIAL HISTORY: She does abuse drugs and she smokes every day, about a pack a day. ALLERGIES: NONE TO PENICILLIN, SULFA OR FOODS. MEDICATIONS: Per chart. REVIEW OF SYSTEMS: Noncontributory. PHYSICAL EXAMINATION: GENERAL: The patient is a well-developed, well-nourished female who is arousable, in no acute distr ess. VITAL SIGNS: Stable. She is afebrile. SKIN: Without generalized rash. HEENT: Within normal limits. NECK: Supple. LYMPH NODES: None palpable. CHEST: Decreased breath sounds at the bases. HEART: Without murmur or gallop. ABDOMEN: Soft, nontender, without organosplenomegaly or masses. EXTREMITIES: Her right leg has an ulcer or eschar. The erythema is less than it was previously, ac cording to the chart. She has some slight tenderness. RECTAL AND GENITAL: Deferred. NEUROLOGIC: No focal neurological abnormalities. LABORATORIES: Review of her labs shows that her blood cultures are negative. She is growing out gr oup A strep and alpha hemolytic strep. Her urine is growing Jena albicans, only 10,000 to 20,000 colony-forming units per mL. She has been on vancomycin and also on fluconazole. She could probab ly be switched over if this is all that grows to ampicillin 1 gram q.6h. IMPRESSION: For the time being, we will keep her on vancomycin. I will dictate my findings to the hospitalist. On discharge, she can go home on amoxicillin 500 mg q.8h. for 10 days to 2 weeks. Dictated By: ANDREINA MILNER MD, JD/JESSICA Conf#: [id number] DID#: [id number]
[2016-07-03 21:07] VITALS: BP 107/73; RESP 16
--- NOTE | 2016-07-03 23:49 | PN ---
Date/Time of Note Date/Time of Note DATE: 07/03/16 TIME: 23:49 Assessment/Plan Lines/Catheters IV Catheter Type (from [facility]): Saline Lock Umana in Place (from [facility]): No Exam/Review of Systems Vital Signs Vitals Vital Signs Date Time Temp Pulse Resp B/P Pulse Ox O2 Delivery O2 Flow Rate FiO2 07/03/16 21:07 98.6 82 16 107/73 98 07/02/16 19:54 Room Air Intake and Output 07/02/16 07/02/16 07/03/16 15:00 23:00 07:00 Intake Total 250 ml 1375 ml 1000 ml Output Total 10 ml Balance 250 ml 1365 ml 1000 ml Results Result Diagram: 07/03/16 0508 07/03/16 0508 JAZMIN TIWARI DPM Jul 03, 2016 23:49
[2016-07-04] MEDS: METHADONE 10 MG TAB PO SCH ×3 (01:16→17:13)
[2016-07-04] MEDS: IMIPENEM/CILASTATIN 1,000 MG in SOD CHLORIDE 0.9% 250 ML IVPB SCH ×4 (01:16→17:13)
[2016-07-04] MEDS: VANCOMYCIN 750 MG in SOD CHLORIDE 0.9% 150 ML IVPB SCH ×2 (05:15→14:42)
[2016-07-04 06:10] LABS: POTASSIUM 4.3 mmol/L (3.5-5.1)
[2016-07-04 06:12] LABS: CREATININE 0.58 mg/dl (0.44-1.00)
[2016-07-04 06:13] LABS: ALBUMIN/GLOBULIN RATIO 0.77; TOTAL PROTEIN 7.1 g/dl (6.1-8.1)
[2016-07-04 06:14] LABS: CALCIUM 8.9 mg/dl (8.4-10.2)
[2016-07-04 06:27] LABS: ALBUMIN 3.1 g/dl (3.3-4.9)
[2016-07-04 06:47] LABS: BASOPHILS % 0.9 % (0.0-2.0); EOSINOPHILS # 0.2 10^3/ul (0.0-0.5); EOSINOPHILS % 5.4 % (0.0-7.0); HEMATOCRIT 33.6 % (37.0-47.0); HEMOGLOBIN 11.3 g/dl (12.0-16.0); LYMPHOCYTES # 1.5 10^3/ul (0.8-2.9); LYMPHOCYTES % 45.3 % (15.0-51.0); MEAN CORPUSCULAR HEMOGLOBIN 27.8 pg (29.0-33.0); MEAN CORPUSCULAR HGB CONC 33.6 g/dl (32.0-37.0); MEAN CORPUSCULAR VOLUME 82.6 fl (82.0-101.0); MEAN PLATELET VOLUME 7.1 fl (7.4-10.4); MONOCYTE # 0.5 10^3/ul (0.3-0.9); MONOCYTES % 14.3 % (0.0-11.0); NEUTROPHIL # 1.1 10^3/ul (1.6-7.5); NEUTROPHILS % 34.1 % (39.0-77.0); PLATELET COUNT 406 10^3/UL (140-440); RED BLOOD COUNT 4.07 10^6/ul (4.20-5.40); RED CELL DISTRIBUTION WIDTH 13.9 % (11.5-14.5); UNCORRECTED WBC 3.3 10^3/ul (4.8-10.8); WHITE BLOOD COUNT 3.3 10^3/ul (4.8-10.8)
[2016-07-04 07:11] LABS: CONDITION 1
[2016-07-04 07:48] VITALS: BP 96/59; RESP 18
[2016-07-04] MEDS: morphine 4 MG/ML VIAL IV PRN (08:58)
[2016-07-04] MEDS: FLUCONAZOLE 100 MG TAB PO SCH ×2 (09:03→21:53)
[2016-07-04] MEDS: ENOXAPARIN 40 MG/0.4 ML SYG SC SCH (09:07)
--- NOTE | 2016-07-04 09:18 | PN ---
Date/Time of Note Date/Time of Note DATE: 07/04/16 TIME: 09:16 Assessment/Plan VTE Prophylaxis VTE Prophylaxis Intervention: LMWH Lines/Catheters IV [facility] (from [facility]): Saline Lock Urinary Cath still in place: No Assessment/Plan Chief Complaint/Hosp Course S: 07/01 less pain. No further fever. No nausea diarrhea. No previous similar issues in the past. 07/02 stable. No toxicity. 07/03. Events noted. Anxious postsurgery as she did not get to speak with surgeon. Presently better. 07/03's no events. No fever toxicity. Dressing change was moderately painful. Patient tells me she was diagnosed with hep C about 5 years ago. Her boyfriend recently of hep C. O: Vss PE No pallor Reg; no appreciated m/r/g Clear Benign Rt ankle: Ulcer/ eschar erythema-less; mild tenderness A/P 1. Rt ankle ulcer/abscess; stable, sp i&d. Check cultures. Anticipate dc tomorrow w antibiotics PT/DME/home health. She is weightbearing as tolerated. 2. Substance abuse-methadone/amphetamine/tobacco? 3. Anemia 4. Hepatitis C?? -Confirmatory testing sent. Patient tells me she is already been diagnosed with hep C. Outpatient GI referral needed. 5. Leukopenia probably related to #4. Problems: Exam/Review of Systems Vital Signs Vitals Vital Signs Date Time Temp Pulse Resp B/P Pulse Ox O2 Delivery O2 Flow Rate FiO2 07/04/16 07:48 98.4 59 18 96/59 94 07/02/16 19:54 Room Air Intake and Output 07/03/16 07/03/16 07/04/16 15:00 23:00 07:00 Intake Total 250 ml 2900 ml 970 ml Output Total 0 ml 2000 ml Balance 250 ml 2900 ml -1030 ml Results Result Diagram: 07/04/16 0516 07/04/16 0516 Results 24 hrs Laboratory Tests Test 07/04/16 05:16 Alanine Aminotransferase (ALT/SGPT) 34 Albumin 3.1 L Albumin/Globulin Ratio 0.77 Alkaline Phosphatase 85 Anion Gap 13 Aspartate Amino Transf (AST/SGOT) 57 H Basophils # 0.0 Basophils % 0.9 Blood Morphology Comment Blood Urea Nitrogen 11 Calcium Level 8.9 Carbon Dioxide Level 29 Chloride Level 101 Creatinine 0.58 Direct Bilirubin 0.00 Eosinophils # 0.2 Eosinophils % 5.4 Globulin 4.00 H Glucose Level 92 Hematocrit 33.6 L Hemoglobin 11.3 L Indirect Bilirubin 0.0 Lymphocytes # 1.5 Lymphocytes % 45.3 Mean Corpuscular Hemoglobin 27.8 L Mean Corpuscular Hemoglobin Concent 33.6 Mean Corpuscular Volume 82.6 Mean Platelet Volume 7.1 L Monocytes # 0.5 Monocytes % 14.3 H Neutrophils # 1.1 L Neutrophils % 34.1 L Nucleated Red Blood Cells # 0.0 Nucleated Red Blood Cells % 0.0 Platelet Count 406 Potassium Level 4.3 Red Blood Count 4.07 L Red Cell Distribution Width 13.9 Sodium Level 139 Total Bilirubin 0.0 L Total Protein 7.1 White Blood Count 3.3 L Medications Medications Current Medications Imipenem/ Cilastatin Sodium/ Sodium Chloride (Primaxin/NS) 250 ml @ 166.667 mls /hr Q6 IVPB Last administered on 07/04/16 06:59; Admin Dose 166.667 MLS/HR; Start 07/01/16 at 00:00 Morphine Sulfate (morphine) 4 mg Q4H PRN IV pain Last administered on 08:58; Admin Dose 4 MG; Start 06/30/16 at 21:00 Acetaminophen (Tylenol Tab) 650 mg Q6H PRN PO PAIN AND OR ELEVATED TEMP; Start 06/30/16 at 21:00 Enoxaparin Sodium (Lovenox) 40 mg DAILY SC Last administered on 07/04/16 09:07 ; Admin Dose 40 MG; Start 07/01/16 at 09:00 Methadone HCl (Methadone) 20 mg Q8H PO Last administered on 07/04/16 09:03; Admin Dose 20 MG; Start 07/01/16 at 01:00 Ondansetron HCl (Zofran Inj) 4 mg Q6H PRN IV NAUSEA AND/OR VOMITING; Start at 12:00 Docusate Sodium (Colace) 100 mg Q12H PRN PO CONSTIPATION; Start 07/01/16 at 12: 00 Acetaminophen/ Hydrocodone Bitart ([place] (10/325)) 1 tab Q4H PRN PO PAIN; Start 07/01/16 at 12:00 Ibuprofen (Motrin) 600 mg Q6H PRN PO PAIN Last administered on 07/02/16 21:28 ; Admin Dose 600 MG; Start 07/02/16 at 21:30 Fluconazole (Diflucan) 100 mg BID PO Last administered on 07/04/16 09:03; Admin Dose 100 MG; Start 07/02/16 at 21:30 Lorazepam 1 mg 1 mg Q3H PRN IV ANXIETY Last administered on 07/02/16 22:03; Admin Dose 0.5 MG; Start 07/02/16 at 22:00 Vancomycin HCl/ Sodium Chloride (Vancocin/NS) 150 ml @ 75 mls/hr Q8H IVPB Last administered on 07/04/16 05:15; Admin Dose 75 MLS/HR; Start 07/03/16 at 14 :00 HEATHER GONSALVES MD Jul 04, 2016 09:18
--- NOTE | 2016-07-04 09:42 | PDOCDIS ---
Discharge Instructions DIAGNOSIS Discharge Diagnosis: abscess CONDITION Patient Condition: Stable HOME CARE INSTRUCTIONS: Diet Instructions: Regular ACTIVITY: Activity Restrictions: Slowly Increase Activity FOLLOW UP/APPOINTMENTS Appointments Appt Primary -1-2wks Dr Janey Rush/ wound care clinic -1wk GI referral for Hepatitis. Dr Cruz appt 2wks. HEATHER GONSALVES MD Jul 04, 2016 09:42
[2016-07-04] MEDS ORDERED: ACET325T33 PO (09:43)
[2016-07-04] MEDS ORDERED: AMO500 PO (09:43)
[2016-07-04] MEDS ORDERED: IBUP-1542 PO (09:43)
--- NOTE | 2016-07-04 15:10 | DS ---
DATE OF ADMISSION: 06/30/2016 DATE OF DISCHARGE: 07/05/2016 PRIMARY CARE PHYSICIAN: None. BAGGAGE SECURITY CHECKER: Dr. Milner, Dr. Duke Tiwari. DIAGNOSIS ON ADMISSION: Right ankle abscess. DIAGNOSES ON DISCHARGE: 1. Right ankle abscess. 2. Chronic hepatitis C viremia. 3. Anemia. 4. Leukopenia 5. Substance abuse; methadone/amphetamines/tobacco/IVDA. 6. Pre-diabetes. HOSPITAL COURSE: This is an unfortunate 30-year-old female with chronic substance abuse, admitted a fter a right lower leg wound did not heal. She was injecting around her right ankle. The patient s howed up a week later noticing redness and swelling, pain, dark fluid, serosanguineous discharge. P atient received a tetanus shot, was seen by ID and podiatry. Underwent I and D under the care of андрей sosa. Please see operative report if needed for complete details. Patient is presently stable an d fit for discharge. Ampicillin for about 10 days and wound care with home health. Of note, the patient tells me she has hepatitis C. We did reinforce that this will impede her abili ty to heal. She wants to see hepatology and consider therapy. We will see if case management can a ssist in outpatient referral. Foot MRI showed soft tissue defect in the right ankle with soft tissue swelling over the right foot. X-ray of the ankle shows soft tissue swelling lateral to the medial malleolus. No fracture identi fied. The follow-up MRI showed soft tissue swelling over the right ankle and the dorsum of the foot . Soft tissue defect over the anterolateral right ankle. Without definite evidence of underlying a bscess. Otherwise, no acute process, right ankle. Blood cultures negative. Urine culture showed Jena, but only 20,000 organisms. Wound culture sh owed Strep pyogenes and alpha hemolytic strep viridans +1 group. White cell count of 3.3, H and H o f 10 and 33, MCV 82, platelets of 406. 600 anemia. Sodium 139, potassium 4, chloride 101, bicarb 2 9, BUN of 11, creatinine 0.5, glucose of 92. A1c of 5.6. Bilirubin 0, AST and ALT of 57 and 34, al kaline phosphatase of 85, protein of 7, albumin of 2. negative. TSH of 3.6. Tox screen positive for opiates, which is not unexpected, and amphetamine. Serologies reactive, hepatitis C an tibody confirmatory testing has been sent out. DISCHARGE PLAN: Home. Follow up with primary in 1 week, ID as needed, podiatry in 1 week. Outpati ent referral to GI. STOPPED MEDICATIONS: Clindamycin; not sure where that came from. NEW MEDICATIONS: 1. Tylenol as needed. 2. Motrin 600 every 6 hours as needed. 3. Amoxicillin 500 mg 3 times daily for 10 days to 2 weeks. Dictated By: HEATHER GONSALVES MD AC/NTS Conf#: [id number] DID#: [id number] CC: DUKE TIWARI DPM; ANDREINA MILNER MD;*[facility]*
--- NOTE | 2016-07-04 18:43 | PN ---
DATE: 07/04/2016 SUBJECTIVE: No acute changes. The patient is alert, lying comfortably in bed, no fevers. Vital si gns stable. MICROBIOLOGY: Urine culture on admission grew Jena albicans, only 10,000 colonies. Right ankle wound culture growing Strep pyogenes and alpha hemolytic strep species, susceptible to all antibioti cs except clindamycin and erythromycin. ANTIMICROBIALS: The patient is on: 1. IV vancomycin. 2. Fluconazole. 3. Also, amoxicillin. 4. Imipenem. DIAGNOSTICS: MRI of the ankle revealed soft tissue swelling over right ankle on the dorsum. No abs cess. LABORATORY DATA: WBC 3.3, H and H 11.3 and 33.6, platelets 406. No shift, no bands. BUN 11, creat inine 0.58. PHYSICAL EXAMINATION: GENERAL: This is a well-nourished, well-developed young woman who is alert, in no distress. HEENT: Head atraumatic, normocephalic. Sclerae anicteric. Buccal mucosa pink. NECK: Supple, trachea midline. CHEST: Rise symmetrical. Breath sounds clear. HEART: S1, S2. ABDOMEN: Soft, bowel tones present. EXTREMITIES: With right foot dressing intact. There is some swelling of her toes present. ASSESSMENT: 1. Right foot cellulitis, status post incision and drainage. 2. History of intravenous drug abuse. 3. Tobacco use. PLAN: The patient remains stable. We will change antibiotics to IV Rocephin while she is in house and then subsequently anticipate discharging her on oral amoxicillin, if podiatry clears her. Dictated By: GALEN TEJEDA [employer] INSPECTOR TRIMMER for ANDREINA MILNER MD NI/NTS Conf#: [id number] DID#: [id number] CC: NAV GAINES MD;*EndCC*
[2016-07-04] MEDS: CEFTRIAXONE 1 GM/50 ML (PMX) 50 ML IVPB SCH (18:46)
[2016-07-04 20:14] VITALS: BP 104/61; RESP 16
--- NOTE | 2016-07-04 22:57 | PN ---
Date/Time of Note Date/Time of Note DATE: 07/04/16 TIME: 22:56 Assessment/Plan Lines/Catheters IV Catheter Type (from Nrs): Saline Lock Umana in Place (from Nrs): No Assessment/Plan Problems: (1) Non-pressure chronic ulcer of right ankle with necrosis of muscle (2) Heroin abuse (3) Cellulitis of right ankle Assessment/Plan Dressing was changed. Daily dressing to continue with Hydrogel to the wound. WB to tolerance using a post op shoe. Exam/Review of Systems Vital Signs Vitals Vital Signs Date Time Temp Pulse Resp B/P Pulse Ox O2 Delivery O2 Flow Rate FiO2 07/04/16 20:14 98.2 67 16 104/61 98 07/02/16 19:54 Room Air Intake and Output 07/03/16 07/03/16 07/04/16 15:00 23:00 07:00 Intake Total 250 ml 2900 ml 970 ml Output Total 0 ml 2000 ml Balance 250 ml 2900 ml -1030 ml Results Result Diagram: 07/04/16 0516 07/04/16 0516 JAZMIN TIWARI DPM Jul 04, 2016 22:57
[2016-07-05] MEDS: METHADONE 10 MG TAB PO SCH ×4 (01:44→22:04)
[2016-07-05 08:11] VITALS: BP 98/64; RESP 20
[2016-07-05] MEDS ORDERED: AMOXICILLIN 500 MG CAP PO SCH (09:00)
[2016-07-05] MEDS: FLUCONAZOLE 100 MG TAB PO SCH ×2 (09:53→21:36)
[2016-07-05] MEDS: ENOXAPARIN 40 MG/0.4 ML SYG SC SCH (09:58)
--- NOTE | 2016-07-05 13:05 | CONS ---
Date/Time of Note Date/Time of Note DATE: 07/05/16 TIME: 13:03 Assessment/Plan Assessment/Plan Chief Complaint/Hosp Course SUBJECTIVE: No acute changes. The patient is alert, lying comfortably in bed , no fevers. Vital signs stable. MICROBIOLOGY: Urine culture on admission grew Jena albicans, only 10,000 colonies. Right ankle wound culture growing Strep pyogenes and alpha hemolytic strep species, susceptible to all antibiotics except clindamycin and erythromycin. ANTIMICROBIALS: Rocephin PHYSICAL EXAMINATION: GENERAL: This is a well-nourished, well-developed young woman who is alert, in no distress. HEENT: Head atraumatic, normocephalic. Sclerae anicteric. Buccal mucosa pink. NECK: Supple, trachea midline. CHEST: Rise symmetrical. Breath sounds clear. HEART: S1, S2. ABDOMEN: Soft, bowel tones present. EXTREMITIES: With right foot dressing intact. There is some swelling of her toes present. ASSESSMENT: 1. Right foot cellulitis, status post incision and drainage. 2. History of intravenous drug abuse. 3. Tobacco use. PLAN: The patient remains stable. As per DW Dr Victor Manuel quiroz dc on PO abx==> PO Amoxicillin for 7-10 more days DW staff Problems: Consultation Date/Type/Reason Admit Date/Time Jun 30, 2016 at 19:37 Initial Consult Date Type of Consultation: id Exam/Review of Systems Vital Signs Vitals Vital Signs Date Time Temp Pulse Resp B/P Pulse Ox O2 Delivery O2 Flow Rate FiO2 07/05/16 08:11 97.7 58 20 98/64 93 07/02/16 19:54 Room Air Intake and Output 07/04/16 07/04/16 07/05/16 15:00 23:00 07:00 Intake Total 500 ml 1890 ml 450 ml Output Total 1550 ml 840 ml Balance 500 ml 340 ml -390 ml Results Result Diagram: 07/04/16 0516 07/04/16 0516 Results 24 hrs Laboratory Tests Test 07/04/16 21:05 Vancomycin Level Trough 10.4 Medications Medications Current Medications Morphine Sulfate (morphine) 4 mg Q4H PRN IV pain Last administered on t 08:58; Admin Dose 4 MG; Start 06/30/16 at 21:00 Acetaminophen (Tylenol Tab) 650 mg Q6H PRN PO PAIN AND OR ELEVATED TEMP; Start 06/30/16 at 21:00 Enoxaparin Sodium (Lovenox) 40 mg DAILY SC Last administered on 07/05/16 09:58 ; Admin Dose 40 MG; Start 07/01/16 at 09:00 Methadone HCl (Methadone) 20 mg Q8H PO Last administered on 07/05/16 09:53; Admin Dose 20 MG; Start 07/01/16 at 01:00 Ondansetron HCl (Zofran Inj) 4 mg Q6H PRN IV NAUSEA AND/OR VOMITING; Start at 12:00 Docusate Sodium (Colace) 100 mg Q12H PRN PO CONSTIPATION; Start 07/01/16 at 12: 00 Acetaminophen/ Hydrocodone Bitart ([place] (10/325)) 1 tab Q4H PRN PO PAIN; Start 07/01/16 at 12:00 Ibuprofen (Motrin) 600 mg Q6H PRN PO PAIN Last administered on 07/02/16 21:28 ; Admin Dose 600 MG; Start 07/02/16 at 21:30 Fluconazole (Diflucan) 100 mg BID PO Last administered on 07/05/16 09:53; Admin Dose 100 MG; Start 07/02/16 at 21:30 Lorazepam 1 mg 1 mg Q3H PRN IV ANXIETY Last administered on 07/02/16 22:03; Admin Dose 0.5 MG; Start 07/02/16 at 22:00 Ceftriaxone Sodium (Rocephin) 50 ml @ 100 mls/hr Q24H IVPB Last administered on 07/04/16 18:46; Admin Dose 100 MLS/HR; Start 07/04/16 at 18:30 GALEN TEJEDA NP Jul 05, 2016 13:05
[2016-07-05] MEDS ORDERED: COLLAGENASE 30 GM TUBE TOP SCH (16:30)
[2016-07-05] MEDS: CEFTRIAXONE 1 GM/50 ML (PMX) 50 ML IVPB SCH (18:33)
[2016-07-05 20:28] VITALS: BP 89/52; RESP 18
[2016-07-05 21:30] VITALS: BP 104/75; PULSE 71
--- NOTE | 2016-07-06 00:23 | DS ---
DATE OF ADMISSION: 06/30/2016 DATE OF DISCHARGE: 07/05/2016 CONSULTATIONS: 1. Dr. Duke Rush. 2. Dr. Johnnie Cruz. DISCHARGE DIAGNOSES: 1. Right ankle abscess. 2. Chronic hepatitis C. 3. Anemia. 4. Leukopenia. 5. Substance abuse, methadone/amphetamine. 6. Tobacco. 7. IV drug abuse. 8. Prediabetic. MEDICATIONS: 1. Tylenol p.r.n. 2. Motrin 600 mg p.o. q.6 hours p.r.n. 3. Amoxicillin 500 mg t.i.d. x10 days. ALLERGIES: NO KNOWN DRUG ALLERGIES. DISCHARGE PLAN: Home. FOLLOWUP: With primary care physician in 1 week. ID as needed. Podiatry 1 week. Outpatient refer ral to [facility], also [facility]. HOSPITAL COURSE: Please see discharge summary, which was done on 07/04/[address] Bustos. This is an unfortunate 30-year-old female with chronic substance abuse, hepatitis C, who was admitte d after right lower leg wound did not heal. The patient was injecting around her right ankle. The patient showed up a week later noticing redness and swelling, pain, and dark fluid, serosanguineous discharge. The patient received a tetanus shot, was seen by ID and podiatry, underwent I and D by p odiatry during the course of hospitalization. Was placed on imipenem and vancomycin during the cour se of hospitalization, as per infectious disease doctor. The patient's WBC is normal and stable to be discharged on amoxicillin. The patient also has been placed on methadone 20 mg p.o. q.8 hours se condary to her history of chronic drug abuse and will be set up to follow up with the methadone clin ic by hospice case manager. At this time, the patient's vitals are stable with temperature 97.7, pulse 58, respiration 20, blood pressure 98/65, oxygen saturation 93% to 98%. LABORATORY: WBC 3.3, hemoglobin 11.3, hematocrit 33.6, platelets 406. Sodium 139, potassium 4.3, c hloride 101, bicarbonate 29, BUN 11, creatinine 0.58, glucose 92, calcium 8.9. AST 57. HIV 1 and 2 antibody negative. Hepatitis C antibody reactive. Hepatitis A nonreactive, hepatitis B antigen ne gative, hepatitis core B antibody negative. Upon admission, on 07/01/2016, patient was found to be positive for amphetamine on her urine drug screen and opiates. At this time, the patient has been cleared by infectious disease and podiatry to be discharged home with followup with podiatry as outpatient. CONDITION AT TIME OF DISCHARGE: Stable. FOLLOWUP: The patient has decided to follow with [facility] and will follow up with [facility] as [facility]. Information will be given by the hospice case manager and social service regarding this matter. Dictated By: KARLENE BERNARD/NTS Conf#: [id number] DID#: [id number]
== END 2016-07-05 22:35 | disposition home or self-care (01) | DRG 572 ==
LOC: MS2 19:37
PROVIDERS: ADMIT Internal Medicine; ATTEND Internal Medicine
PROC: 0JBQ0ZZ Excision of Right Foot Subcutaneous Tissue and Fascia, Open Approach (ICD-10-PCS; principal; 2016-07-02 20:00)
DX: L03.115 Cellulitis of right lower limb (principal); F11.10 Opioid abuse, uncomplicated; B18.2 Chronic viral hepatitis C; D64.9 Anemia, unspecified; D72.819 Decreased white blood cell count, unspecified; F17.200 Nicotine dependence, unspecified, uncomplicated; R73.03 Prediabetes; F15.10 Other stimulant abuse, uncomplicated; B95.4 Other streptococcus as the cause of diseases classified elsewhere
CPT/HCPCS: 73600; 73718; 73721; 80048; 80053; 80202; 80307; 81001; 81003; 82306; 83036; 83735; 84100; 84443; 84703; 85025; 86703; 86704; 86709; 86803; 87040; 87070; 87086; 87340; 88304; J0696; J0743; J1650; J2060; J2175; J2270; J3370; J7030; J7050